=== PATIENT | male | born 1945 | race Caucasian/White ===

== ENCOUNTER 2021-07-05 09:07 | Day surgery (SDC) | payer MEDICARE, BC ==
[2021-07-05] MEDS ORDERED: Dexamethasone 4 MG/ML SDV IV ONE (09:08)
[2021-07-05] MEDS ORDERED: Midazolam 1 MG/ML 2 ML SDV IV ONE (09:08)
[2021-07-05] MEDS ORDERED: Sodium Chloride 0.9% 10 ML Syringe IV ONE (09:08)
[2021-07-05] MEDS ORDERED: Povidone-Iodine 5% Sterile Ophth Soln 30 ML Bottle EYERT ONE ×2 (09:45→10:29)
[2021-07-05] MEDS ORDERED: Acetaminophen/Codeine 300-30 MG Tab PO PRN (09:45)
[2021-07-05] MEDS ORDERED: Tropicamide 1% Ophth Soln 15 ML Bottle EYERT ONE (09:45)
[2021-07-05] MEDS ORDERED: Sodium Chloride 0.9% 10 ML Syringe FLUSH PRN (09:45)
[2021-07-05] MEDS ORDERED: Proparacaine 0.5% Ophth Soln 15 ML Bottle EYERT ONE (09:45)
[2021-07-05] MEDS ORDERED: Moxifloxacin 0.5% Ophth Soln 3 ML Bottle EYERT ONE (09:45)
[2021-07-05] MEDS ORDERED: Acetaminophen 325 MG Tab PO PRN (09:45)
[2021-07-05] MEDS ORDERED: Ondansetron 4 MG/2 ML SDV IVPUSH PRN (09:45)
[2021-07-05] MEDS ORDERED: Timolol Maleate 0.5% Ophth Soln 5 ML Bottle EYERT ONE (09:45)
[2021-07-05] MEDS ORDERED: Cataract Ophth Solution EYERT ONE (09:45)
[2021-07-05] MEDS ORDERED: Phenylephrine 10% Ophth Soln 5 ML Bot EYERT ONE (09:45)
[2021-07-05] MEDS ORDERED: Dexamethasone/Neomycin/Polymyxin B Ophth Oint 3.5 GM Tube EYERT ONE (10:29)
[2021-07-05] MEDS ORDERED: Tetracaine HCl/PF 0.5% 4 ML Bottle EYERT ONE (10:29)
[2021-07-05] MEDS ORDERED: Apraclonidine 0.5% Ophth Soln 5 ML Bot EYERT ONE (10:29)
[2021-07-05] MEDS ORDERED: Diclofenac Sodium 0.1% Ophth Soln 5 ML Bottle EYERT ONE (10:29)
[2021-07-05] MEDS ORDERED: Balanced Salt Solution Ophth Irrig 500 ML Bottle IOCULAR ONE (10:30)
[2021-07-05] MEDS ORDERED: Lidocaine 1% 30 ML SDV ONE (10:30)
[2021-07-05] MEDS ORDERED: Chondroitin Sulfate/Hyaluronate Sodium Ophth Inj 0.75 ML Syringe EYERT ONE (10:31)
[2021-07-05] MEDS ORDERED: Vancomycin 500 MG SDV EYERT ONE (10:31)
[2021-07-05] MEDS ORDERED: Dexamethasone 4 MG/ML SDV IOCULAR ONE (10:38)
--- NOTE | 2021-07-06 07:31 | OR ---
DATE: 07/05/2021 PREOPERATIVE DIAGNOSIS: Visually significant mixed cataract, right eye. POSTOPERATIVE DIAGNOSIS: Visually significant mixed cataract, right eye. PROCEDURE: Extracapsular cataract extraction with intraocular lens implant, right eye. ANESTHESIA: Topical/local MAC. COMPLICATIONS: None. INDICATION: Mr. Pérez was seen in the clinic. His examination revealed visually significant mixed cataract. He has difficulty seeing books, newspapers, pill bottles; difficulty seeing food packages; difficulty seeing faces. He has noticed a progressive change. He saw his regular belt notcher, Dr. Hughes. Dr. Hughes was not able to improve his vision and meet his needs with a change in glasses. He was explained options, offered cataract surgery, and I explained risks including the potential for infection, retinal detachment, loss of vision, need for additional surgery, amongst others. We have discussed implant options. He has requested a mono focal implant. He is comfortable wearing glasses following surgery if necessary. OPERATIVE DESCRIPTION: After informed consent was obtained and the risks, benefits, and alternatives were explained, the patient was brought to the operative suite and topical anesthesia was administered. The patient was then prepped and draped in the sterile fashion and attention was placed on the right eye. A sterile lid speculum was placed into the right eye to allow operative exposure. A full-thickness paracentesis was made in the temporal portion of the operative eye. Preservative-free lidocaine 0.1 mL was injected into the anterior chamber followed by viscoelastic. A full-thickness corneal incision was then made into the anterior chamber. A bent needle cystotome was used to create a small diane in the anterior capsule. The capsulorrhexis forceps was then used to create a 360-degree curvilinear capsulorrhexis. The nucleus was then removed using a phacoemulsification handpiece and the remaining cortical material was then removed with irrigation and aspiration handpiece. Following removal of the cortical material, the capsular bag was then inspected and noted to be free of any holes or tears. Viscoelastic was then injected into the capsular bag and the intraocular lens was inserted into the capsular bag. The viscoelastic material was then removed from both the anterior and posterior chambers and from behind the IOL. The lens and capsular bag were then reinspected. The IOL was well centered and the capsular bag intact. The wound and paracentesis sites were inspected and hydrated with balanced saline solution. Both were found to be self- sealing. The intraocular pressure was assessed digitally and found to be within normal range. A good red reflex was noted at the completion of the procedure. No complications occurred during the operation. At the completion of the procedure, Maxitrol, Voltaren, and Iopidine drops were placed into the operative eye. A sterile eye shield was placed over the operative eye and the patient was transported to the postoperative recovery area having tolerated the procedure well. Postoperative instructions were given along with a postoperative appointment. The patient was advised to call with any questions or concerns. [facility] /[id number]
== END 2021-07-05 11:50 | disposition home or self-care (01) ==
LOC: DL.SDS 09:07
PROVIDERS: ATTEND Ophthalmology
DX: H26.8 Other specified cataract (principal); E53.8 Deficiency of other specified B group vitamins; H61.23 Impacted cerumen, bilateral; Z98.890 Other specified postprocedural states
CPT/HCPCS: A9270-GY; J1100; J2250; J3370; V2632

== ENCOUNTER → 2021-07-12 | Day surgery (SDC) | payer MEDICARE, BC ==
[~2021-07-12] MED LIST: Acetaminophen 325 MG Tab PO PRN; Acetaminophen/Codeine 300-30 MG Tab PO PRN; Apraclonidine 0.5% Ophth Soln 5 ML Bot EYELF ONE; Balanced Salt Solution Ophth Irrig 500 ML Bottle IOCULAR ONE; Cataract Ophth Solution EYELF ONE; Chondroitin Sulfate/Hyaluronate Sodium Ophth Inj 0.75 ML Syringe EYELF ONE; Dexamethasone 4 MG/ML SDV IV ONE; Dexamethasone/Neomycin/Polymyxin B Ophth Oint 3.5 GM Tube EYELF ONE; Diclofenac Sodium 0.1% Ophth Soln 5 ML Bottle EYELF ONE; Lidocaine 1% 30 ML SDV ONE; Midazolam 1 MG/ML 2 ML SDV IV ONE; Moxifloxacin 0.5% Ophth Soln 3 ML Bottle EYELF ONE; Ondansetron 4 MG/2 ML SDV IVPUSH PRN; Phenylephrine 10% Ophth Soln 5 ML Bot EYELF ONE; Povidone-Iodine 5% Sterile Ophth Soln 30 ML Bottle EYELF ONE; Proparacaine 0.5% Ophth Soln 15 ML Bottle EYELF ONE; Sodium Chloride 0.9% 10 ML Syringe FLUSH PRN; Sodium Chloride 0.9% 10 ML Syringe IV ONE; Tetracaine HCl/PF 0.5% 4 ML Bottle EYELF ONE; Timolol Maleate 0.5% Ophth Soln 5 ML Bottle EYELF ONE; Tropicamide 1% Ophth Soln 15 ML Bottle EYELF ONE; Vancomycin 500 MG SDV EYELF ONE
--- NOTE | 2021-07-13 08:49 | OR ---
DATE: 07/12/2021 PREOPERATIVE DIAGNOSIS: Visually significant mixed cataract, left eye. POSTOPERATIVE DIAGNOSIS: Visually significant mixed cataract, left eye. PROCEDURE: Extracapsular cataract extraction with intraocular lens implant, left eye. ANESTHESIA: Topical/local MAC. COMPLICATIONS: None. INDICATION: Mr. Pérez was seen in the clinic. He is unhappy with his vision noticing a slow progressive change. He has difficulty seeing books, newspapers, pill bottles; difficulty reading; difficulty seeing food pack edges; difficulty seeing faces. He has noticed a progressive frame changer the last one year. He saw his regular motor carrier inspector, Dr. Hughes. Dr. Hughes was not able to improve his vision with a change in glasses. I have explained options, offered cataract surgery, and I explained risks including the potential for infection, retinal detachment, loss of vision, need for additional surgery, and risks associated with anesthesia. We discussed implant options. He has requested a monofocal implant. He is comfortable wearing glasses following surgery if necessary. OPERATIVE DESCRIPTION: After informed consent was obtained and the risks, benefits, and alternatives were explained, the patient was brought to the operative suite and topical anesthesia was administered. The patient was then prepped and draped in the sterile fashion and attention was placed on the left eye. A sterile lid speculum was placed into the left eye to allow operative exposure. A full-thickness paracentesis was made in the temporal portion of the operative eye. Preservative-free lidocaine 0.1 mL was injected into the anterior chamber followed by viscoelastic. A full-thickness corneal incision was then made into the anterior chamber. A bent needle cystotome was used to create a small diane in the anterior capsule. The capsulorrhexis forceps was then used to create a 360-degree curvilinear capsulorrhexis. The nucleus was then removed using a phacoemulsification handpiece and the remaining cortical material was then removed with irrigation and aspiration handpiece. Following removal of the cortical material, the capsular bag was then inspected and noted to be free of any holes or tears. Viscoelastic was then injected into the capsular bag and the intraocular lens was inserted into the capsular bag. The viscoelastic material was then removed from both the anterior and posterior chambers and from behind the IOL. The lens and capsular bag were then reinspected. The IOL was well centered and the capsular bag intact. The wound and paracentesis sites were inspected and hydrated with balanced saline solution. Both were found to be self- sealing. The intraocular pressure was assessed digitally and found to be within normal range. A good red reflex was noted at the completion of the procedure. No complications occurred during the operation. At the completion of the procedure, Maxitrol, Voltaren, and Iopidine drops were placed into the operative eye. A sterile eye shield was placed over the operative eye and the patient was transported to the postoperative recovery area having tolerated the procedure well. Postoperative instructions were given along with a postoperative appointment. The patient was advised to call with any questions or concerns. [facility] /[id number]
== END | disposition home or self-care (01) ==
LOC: DL.SDS 09:49
PROVIDERS: ATTEND Ophthalmology
DX: H26.8 Other specified cataract (principal); E53.8 Deficiency of other specified B group vitamins; Z98.890 Other specified postprocedural states
CPT/HCPCS: 66984; A9270; J1100; J2250; J3370; V2632; 00142

== ENCOUNTER 2023-07-05 06:33 | Day surgery (SDC) | payer MEDICARE ==
[2023-07-05] MEDS ORDERED: Dextrose 5%-0.45% NaCl 1,000 ML IV SCH (07:30)
[2023-07-05] MEDS ORDERED: fentaNYL 100 MCG/2 ML SDV IV ONE ×2 (07:40→07:45)
[2023-07-05] MEDS ORDERED: Midazolam 1 MG/ML 2 ML SDV IV ONE ×2 (07:40→07:46)
[2023-07-05] MEDS ORDERED: Midazolam 1 MG/ML 2 ML SDV ONE (07:40)
[2023-07-05] MEDS ORDERED: fentaNYL 100 MCG/2 ML SDV ONE (07:40)
== END 2023-07-05 10:00 | disposition home or self-care (01) ==
LOC: DL.ENDO 06:33
PROVIDERS: ATTEND Internal Medicine Gastroenterology
DX: K29.40 Chronic atrophic gastritis without bleeding (principal); K22.89 Other specified disease of esophagus; K29.50 Unspecified chronic gastritis without bleeding; K31.A0 Gastric intestinal metaplasia, unspecified; R63.4 Abnormal weight loss; E53.8 Deficiency of other specified B group vitamins; E61.1 Iron deficiency; D72.829 Elevated white blood cell count, unspecified; D75.839 Thrombocytosis, unspecified; H91.90 Unspecified hearing loss, unspecified ear; R35.0 Frequency of micturition; Z98.49 Cataract extraction status, unspecified eye; Z90.89 Acquired absence of other organs; Z98.890 Other specified postprocedural states; Z68.1 Body mass index [BMI] 19.9 or less, adult
CPT/HCPCS: 87077; 88305; 88342; J2250; J3010; J7042

== ENCOUNTER 2023-10-03 11:17 | Emergency (ER) | payer MEDICARE ==
[2023-10-03] MEDS ORDERED: Lactated Ringers 1,000 ML IV ONE (11:59)
[2023-10-03 12:06] LABS: BASOPHILS PERCENT AUTO 0.4 % (0.0-1.0); EOSINOPHILS PERCENT AUTO 1.8 % (1.0-3.0); HEMATOCRIT 24.7 % (40.0-54.0); HEMOGLOBIN 7.4 g/dL (14.0-18.0); LYMPHOCYTES PERCENT AUTO 9.9 % (20.5-50.1); MEAN CORPUSCULAR HEMOGLOBIN 25.8 pg (27.0-34.0); MEAN CORPUSCULAR VOLUME 86.1 fL (80-100); MONOCYTES PERCENT AUTO 5.6 % (2-8); NEUTROPHILS PERCENT AUTO 82.3 % (42.2-75.2); PLATELET COUNT,PLT 493 10^3/uL (150-450); RED BLOOD CELL COUNT 2.87 10^6/uL (4.6-6.2); WHITE BLOOD CELL COUNT,WBC 11.4 10^3/uL (5.0-10.0)
[2023-10-03 12:21] LABS: ALANINE AMINOTRANSFERASE,ALT 15 U/L (16-63); ALBUMIN 2.2 g/dL (3.4-5.0); ALKALINE PHOSPHATASE 61 U/L (46-116); ANION GAP 19.2 mEq/L (7-13); ASPARTATE AMNIOTRANSFERASE,AST 12 U/L (15-37); BILIRUBIN TOTAL 0.3 mg/dL (0.2-1.0); CALCIUM 9.3 mg/dL (8.5-10.1); CARBON DIOXIDE,CO2 20 mmol/L (21-32); CHLORIDE,CL 109 mmol/L (98-107); GLUCOSE RANDOM 170 mg/dL (70-99); LIPASE 205 U/L (16-77); MAGNESIUM 2.2 mg/dL (1.8-2.4); POTASSIUM,K 6.2 mmol/L (3.5-5.1); PROTEIN TOTAL,TP 7.6 g/dL (6.4-8.2); SODIUM,NA 142 mmol/L (136-145)
[2023-10-03 12:29] LABS: A/G RATIO 0.41; BLOOD UREA NITROGEN,BUN > 150 mg/dL (7-18); BUN/CREATININE RATIO 14.2 (No establ ref range); ESTIMATED GFR 4 mL/min (>=60)
[2023-10-03 13:05] LABS: T4 FREE 0.55 ng/dL (0.76-1.46); TSH ULTRASENSITIVE 2.9 uIU/mL (0.36-3.74)
[2023-10-03 14:35] LABS: APPEARANCE,URINE CLEAR (CLEAR); BILIRUBIN,URINE NEGATIVE (NEGATIVE); COLOR,URINE YELLOW (YELLOW); GLUCOSE,URINE 100 (NEGATIVE); KETONES,URINE NEGATIVE (NEGATIVE); LEUKOCYTE ESTERASE,URINE NEGATIVE (NEGATIVE); NITRITE,URINE NEGATIVE (NEGATIVE); OCCULT BLOOD,URINE TRACE-INTACT (NEGATIVE); PROTEIN,URINE 100 (NEGATIVE); UROBILINOGEN,URINE 0.2 mg/dL (0.2-1.0)
[2023-10-03 14:56] LABS: AMORPHOUS SEDIMENT,URINE RARE /HPF (NOT SEEN); BACTERIA,URINE RARE /HPF (0-FEW/HPF); EPITHELIAL CELLS,URINE FEW /HPF (NOT SEEN); MUCUS,URINE RARE /LPF (NOT SEEN); WBC,URINE 0-5 /HPF (0-5/HPF)
[2023-10-03 16:42] LABS: ANION GAP 18.2 mEq/L (7-13); CALCIUM 9.4 mg/dL (8.5-10.1); CARBON DIOXIDE,CO2 22 mmol/L (21-32); CHLORIDE,CL 109 mmol/L (98-107); EST CRCL DRUG DOSING (CG) 4.28 mL/min; GLUCOSE RANDOM 144 mg/dL (70-99); POTASSIUM,K 6.2 mmol/L (3.5-5.1); SODIUM,NA 143 mmol/L (136-145)
[2023-10-03 16:43] LABS: CREATININE 10.16 mg/dL (0.70-1.30)
[2023-10-03 16:44] LABS: BLOOD UREA NITROGEN,BUN > 150 mg/dL (7-18); ESTIMATED GFR 5 mL/min (>=60)
[2023-10-03] MEDS ORDERED: 50% Dextrose in Water 50 ML Syringe IVPUSH ONE (18:28)
[2023-10-03] MEDS ORDERED: Insulin Regular, Human 100 Units/ML 3 ML Vial IV ONE (18:30)
[2023-10-03] MEDS ORDERED: Glucagon,Human Recombinant 1 MG Vial IM PRN (18:30)
[2023-10-03] MEDS ORDERED: 50% Dextrose in Water 50 ML Syringe IVPUSH PRN (18:30)
[2023-10-03] MEDS ORDERED: Sodium Polystyrene Sulfonate 15 GM/60 ML Susp 60 ML Bot PO ONE (18:33)
[2023-10-03] MEDS ORDERED: Sodium Chloride 0.9% 1,000 ML IV SCH (19:15)
== END 2023-10-03 19:30 | disposition other institution (70) ==
LOC: DL.ED 11:17
DX: E87.5 Hyperkalemia (principal); D64.9 Anemia, unspecified; N19 Unspecified kidney failure
CPT/HCPCS: 36415; 70450; 71250; 74176; 80048; 80053; 81001; 83690; 83735; 84439; 84443; 85025; 87389; 93005; 93010; 96361; 96374; 99284; 99285-25; A9270-GY; J1815-GY; J3490; J7120